=== PATIENT | male | born 1945 ===

== ENCOUNTER → 2023-08-09 | Outpatient (CLI) | payer MEDICARE | END | disposition home or self-care (01) | LOC: PLD 12:21 → LAB 12:21 → LAB SHORT 12:21 | DX: L57.0 Actinic keratosis (principal) | CPT/HCPCS: 88305 ==

== ENCOUNTER 2024-07-05 14:40 | Inpatient (IN) | payer OTHER ==
[~2024-07-05] VITALS: Ht 152.4 cm; Wt 84.9 kg
[2024-07-05] VITALS (22 sets, daily range): BP systolic 113–148; BP diastolic 64–119
[~2024-07-05 14:40] MED LIST: Atropine Sulfate 0.1 MG/ML 10ML SYR XX ONE
[2024-07-05] MEDS ORDERED: Diazepam 5 MG / ML 2ML SYR IV ONE (15:05)
[2024-07-05] MEDS ORDERED: Morphine Sulfate 4 MG/1 ML Injection IV ONE ×2 (15:05→15:15)
[2024-07-05] MEDS ORDERED: Morphine Sulfate 4 MG/1 ML Injection ONE (15:16)
[2024-07-05] MEDS ORDERED: Aspirin 81 MG Chew ONE (15:46)
[2024-07-05] MEDS ORDERED: Aspirin 81 MG Chew PO ONE (15:50)
[2024-07-05 15:57] LABS: BASOPHILS ABSOLUTE AUTO 0.01 K/mm3 (0.00-0.23); BASOPHILS PERCENT AUTO 0 % (0-2); EOSINOPHILS ABSOLUTE AUTO 0.02 K/mm3 (0.00-0.68); EOSINOPHILS PERCENT AUTO 0 % (0-6); Hemoglobin 13.6 g/dL (13.5-17.5); IMMATURE GRAN ABSOLUTE AUTO 0.23 K/mm3 (0.00-0.10); IMMATURE GRAN PERCENT AUTO 4 % (0-1); LYMPHOCYTES ABSOLUTE AUTO 0.57 K/mm3 (0.84-5.20); LYMPHOCYTES PERCENT AUTO 11 % (21-46); MONOCYTES ABSOLUTE AUTO 0.53 K/mm3 (0.16-1.47); MONOCYTES PERCENT AUTO 10 % (4-13); Mean Corpuscular HGB 29.2 pg (26.0-34.0); Mean Corpuscular HGB Conc 32.4 g/dL (31.5-36.5); Mean Corpuscular Volume 90 fL (80-100); NEUTROPHILS ABSOLUTE AUTO 3.95 K/mm3 (1.96-9.15); NEUTROPHILS PERCENT AUTO 74 % (41-73); Platelet Count 213 K/mm3 (150-400); RDW Coefficient Variation 15.2 % (11.7-14.2); RDW Standard Deviation 50.5 fL (35.1-46.3); Red Blood Cell Count 4.65 M/mm3 (4.30-5.90); White Blood Cell Count 5.31 K/mm3 (4.00-11.30)
[2024-07-05] MEDS ORDERED: Verapamil HCL 2.5 MG/ML 2ML Injection ONE (16:06)
[2024-07-05] MEDS ORDERED: Nitroglycerin 2 MG/20 ML BTL ONE (16:06)
[2024-07-05] MEDS ORDERED: Midazolam HCl 1MG / ML 2ML Vial ONE (16:07)
[2024-07-05] MEDS ORDERED: SERT25 PO (16:07)
[2024-07-05] MEDS ORDERED: AMLO10 PO ×2 (16:07→16:08)
[2024-07-05] MEDS ORDERED: FentaNYL Citrate 50 MCG/ML 2 ML Injection ONE (16:08)
[2024-07-05] MEDS ORDERED: Heparin Sodium 1000 Units/ML 10ML MDV ONE (16:08)
[2024-07-05] MEDS ORDERED: ATOR10 PO (16:08)
[2024-07-05] MEDS ORDERED: Atropine Sulfate 0.1 MG/ML 10ML SYR ONE (16:08)
[2024-07-05] MEDS ORDERED: JAKAFI10 MG PO (16:08)
[2024-07-05] MEDS ORDERED: Aspir 8181 MG PO (16:08)
[2024-07-05] MEDS ORDERED: NS 1,000 ML IV ONE (16:08)
[2024-07-05] MEDS ORDERED: VITAMIN D33000 UNIT PO (16:09)
[2024-07-05 16:11] LABS: Albumin, Blood 4.1 g/dL (3.4-5.0); Albumin/Globulin Ratio 1.5 (0.8-1.8); Bilirubin, Total 0.5 mg/dL (0.1-1.0); Bun/Creatinine Ratio 15.2 (12.0-20.0); Calcium, Blood 8.6 mg/dL (8.5-10.1); Creatinine, Blood 1.25 mg/dL (0.60-1.20); Globulin, Blood 2.7 g/dL (2.2-4.0); Total Protein, Blood 6.8 g/dL (6.4-8.2)
[2024-07-05] MEDS ORDERED: NS 250 ML IV ONE (16:13)
--- NOTE | 2024-07-05 18:08 | NUR ---
ADMIT PT ARRIVED TO ICU 10 VIA BED FROM [facility]. PT HAS TV PACER IN R IJ WITH SETTINGS OF RATE 60, OUTPUT 3, SENSING 2. PT'S HR WAS READING 55-58 AT THESE SETTINGS. SPOKE WITH DR. SERRA AND RECEIVED ORDER TO INCREASE OUTPUT TO 7 AND SENSING TO 8. HR INCREASED TO 60 WITH THESE SETTINGS. PT DENIED ANY DIZZINESS AT THE LOWER HR. PT HAS R TR BAND SITE. SITE IS C/D/I, SOFT, NO HEMATOMA. PT'S FINGERS ARE A LITTLE DUSKY BUT PT DENIES ANY NUMBNESS OR TINGLING. PT IS ALERT AND ORIENTED. DR. SERRA GAVE OK FOR PT TO EAT DINNER, BUT NPO AFTER MIDNIGHT.
[2024-07-05] MEDS ORDERED: Acetaminophen 325 MG TABLET PO PRN (18:50)
[2024-07-05] MEDS ORDERED: OxyCODONE HCL 5 MG TAB PO PRN (18:50)
[2024-07-05] MEDS ORDERED: NS 1,000 ML IV SCH (19:00)
[2024-07-05 19:45] LABS: C-REACTIVE PROTEIN, EXT RANGE <0.290 mg/dL (0.000-0.300); Magnesium, Blood 2.1 mg/dL (1.6-2.4)
--- NOTE | 2024-07-05 20:48 | NUR ---
ASSUMED CARE AT 1900 PATIENT IS ALERT AND ORIENTED X4. SP02 95% ON RA, DENIES SOB. HR PACED VIA TRANSVENOUS PACER AT 60, OUTPUT 7, SENSE 8, LENGTH 65 CM. DENIES CP/PRESSURE. TR BAND TO RIGHT RADIAL SITE DEFLATED, WILL REMOVE IN ONE HOUR IF NO HEMATOMA, SITE WNL AT THIS TIME. PATIENT ABLE TO USE URINAL. REPOSITION SELF IN BED. CALL LIGHT IN REACH. SEE SHIFT ASSESSMENT FOR MORE INFORMATION.
[2024-07-05] MEDS ORDERED: Atorvastatin 10 MG Tab PO SCH (21:00)
--- NOTE | 2024-07-05 22:14 | NUR ---
TR BAND OFF, TEGADERM AND ARM BOARD IN PLACE. SITE WNL.
[2024-07-06] VITALS (29 sets, daily range): BP systolic 107–155; BP diastolic 65–90
[2024-07-06 04:04] LABS: Albumin/Globulin Ratio 1.3 (0.8-1.8); Bilirubin, Total 0.6 mg/dL (0.1-1.0); Bun/Creatinine Ratio 12.8 (12.0-20.0); Calcium, Blood 9.2 mg/dL (8.5-10.1); Creatinine, Blood 1.09 mg/dL (0.60-1.20)
--- NOTE | 2024-07-06 06:15 | NUR ---
SHIFT SUMMARY PATIENT ALERT AND ORIENTED THROUGH THE NIGHT. SP02 96% ON RA. HR PACED AT 60 THROUGH THE ENTIRE NIGHT VIA TRANSVENOUS PACER. BP STABLE. USES URINAL. CALL LIGHT IN REACH
--- NOTE | 2024-07-06 07:38 | NUR ---
AM NOTE... ASSUMED CARE OF PT AT 0700, PT IS A&Ox4. TV PACER TO THE RIGHT IJ, SITE IS STABLE PT C/O OF MINIMAL PAIN TO THE SITE. RIGHT ANGIO SITE IS ALSO STABLE, ARM BOARD IN PLACE. TV PACER 60, PT'S RATE IS 60 AND 100% PACED, BP IS STABLE WITH MAPS>65. NO SWELLING OR EDEMA IS NOTED. PT DENIES CP. L/S CLEAR T/O PT IS ON RA WITH O2 SATS>95%. WILL CONTINUE TO MONITOR.
[2024-07-06] MEDS ORDERED: Aspirin 81 MG TabEC PO SCH (09:00)
[2024-07-06] MEDS ORDERED: AmLODIPine Besylate 5 MG Tab PO SCH (09:00)
[2024-07-06] MEDS ORDERED: Sertraline HCl 50 MG Tab PO SCH (09:00)
[2024-07-06] MEDS ORDERED: RUXOLITINIB 10 MG PO SCH (09:00)
[2024-07-06] MEDS ORDERED: Sennosides 8.6 MG Tab PO SCH (09:00)
[2024-07-06] MEDS ORDERED: NS 100 ML IV ONE (09:14)
[2024-07-06] MEDS ORDERED: CeFAZolin Sodium 1000 mg Vial ONE (09:14)
[2024-07-06] MEDS ORDERED: CeFAZolin Sodium 2,000 MG VIAL ONE (09:14)
[2024-07-06] MEDS ORDERED: Bupivacaine 0.5% HCl 5 MG/ML 30MLVIAL ONE (09:15)
[2024-07-06] MEDS ORDERED: Heparin Sodium 1000 Units/ML 10ML MDV ONE (09:15)
[2024-07-06] MEDS ORDERED: NS 1,000 ML IV ONE ×2 (09:15)
[2024-07-06] MEDS ORDERED: Artificial Tears Opth Oint 7 GM BOTHEYES PRN (09:35)
[2024-07-06] MEDS ORDERED: FentaNYL Citrate 50 MCG/ML 2 ML Injection ONE (10:07)
[2024-07-06] MEDS ORDERED: Midazolam HCl 1MG / ML 2ML Vial ONE ×2 (10:07→11:28)
[2024-07-06] MEDS ORDERED: Lidocaine 2%-Epineph 1:100000 20 ML MDV ONE (11:53)
--- NOTE | 2024-07-06 13:52 | NUR ---
CARE ASSUMPTION: PT ARRIVES F/HEART CENTER AT APPROX 1230, S/P PACEMAKER PLACEMENT. PT ALERT UPON ARRIVAL, ORIENTED x4, ORIENTED TO ROOM. PT DENIES CP OR SOB. O2 SATS >92% ON RA, LS CLEAR. PACED RHYTHM ON MONITOR, RATE 60. RECOVERY VS MONITORING IN PLACE. RIGHT IJ SITE COVERED W/ GAUZE AND TRANSPARENT DRESSING, BRUISING AROUND INSERTION SITE NOTED, OTHERWISE STABLE. R RADIAL SITE RECOVERED, BRUISING AND SWELLING AROUND INSERTION SITE W/TRANSPARENT DRESSING AND ARM BOARD IN PLACE. PT HAS BEEN SLEEPING SINCE ARRIVAL TO ROOM, CALL LIGHT IS IN REACH. WILL CONTINUE TO MONITOR AND TREAT ACCORDINGLY.
[2024-07-06] MEDS ORDERED: CeFAZolin Sodium 2,000 MG in NS 100 ML IV SCH (18:00)
--- NOTE | 2024-07-06 18:49 | NUR ---
SHIFT SUMMARY: NO ACUTE CHANGES SINCE LAST NOTE. PT AWAKE, ORIENTEDx4, ANSWERING QUESTIONS APPROPRIATELY. L CHEST SITE DRESSING WNL, ICE PACK TO AREA, PT TOLERATING WELL. PT RESTING QUIETLY IN ROOM WITH CALL LIGHT IN REACH.
--- NOTE | 2024-07-06 20:24 | NUR ---
ASSUMPTION OF CARE AFTER RECEIVING REPORT FROM SANDEEP DE LA FUENTE, THIS RN ASSUMED CARE AT APPROX 1915. PATIENT ALERT AND ORIENTED X4. COMMUNICATES NEEDS EFFECTIVELY. S/P DUAL CHAMBER PACEMAKER PLACEMENT TODAY W/ L CHEST SITE. GAUZE AND PRESSURE TAPE DRESSING IN PLACE - C/D/I. MINIMAL BRUISING NOTED AROUND DRESSING AND L AXILLARY AREA. PAIN TOLERABLE WITH ICE PACK. LUE IN SLING. IS A SBA WITH MOBILITY FOR LINE, DEVICE MANAGEMENT. TELEMETRY SHOWING PACED 60s. BP STABLE, SBP 150s. DENIES CHEST PAIN, PRESSURE. R RADIAL SITE FROM ANGIO. SMALL HEMATOMA NOTED AT INSERTION SITE, OTHERWISE DRESSING IS C/D/I. NONPAINFUL. ARMBOARD IN PLACE. ON ROOM AIR, SATs >90%. RR EVEN, UNLABORED. CALL LIGHT IN REACH.
[2024-07-07] MEDS ORDERED: Ondansetron HCl 2 MG / ML 2ML Vial IV PRN (01:40)
[2024-07-07 03:01] VITALS: BP 154/86
[2024-07-07 04:27] LABS: Hematocrit 43.4 % (37.0-53.0); Hemoglobin 14.4 g/dL (13.5-17.5); Mean Corpuscular HGB 29.6 pg (26.0-34.0); Mean Corpuscular HGB Conc 33.2 g/dL (31.5-36.5); Mean Corpuscular Volume 89 fL (80-100); Mean Platelet Volume 10.6 fL (9.1-12.4); Platelet Count 179 K/mm3 (150-400); RDW Coefficient Variation 15.6 % (11.7-14.2); RDW Standard Deviation 50.4 fL (35.1-46.3); Red Blood Cell Count 4.86 M/mm3 (4.30-5.90); White Blood Cell Count 5.93 K/mm3 (4.00-11.30)
[2024-07-07 04:49] LABS: Bun/Creatinine Ratio 11.1 (12.0-20.0); Calcium, Blood 9.3 mg/dL (8.5-10.1); Creatinine, Blood 1.08 mg/dL (0.60-1.20); Magnesium, Blood 1.8 mg/dL (1.6-2.4); Potassium, Blood 4.2 mmol/L (3.5-5.5)
--- NOTE | 2024-07-07 05:06 | NUR ---
SHIFT SUMMARY NO ACUTE EVENTS SINCE ASSUMPTION OF CARE NOTE. PATIENT REMAINS ALERT AND ORIENTED X4. AFEBRILE. TELEMETRY SHOWING PACED 60s-70s. BP STABLE, SBP 150s. DENIES CHEST PAIN, PRESSURE. L UPPER CHEST WALL INCISION REMAINS C/D/I. GAUZE AND PRESSURE TAPE DRESSING IN PLACE. NO GROWTH IN BRUISING AROUND DRESSING AND L AXILLARY SINCE PREVIOUS ASSESSMENT. NO CHANGES TO R RADIAL SITE FROM PREVIOUS ASSESSMENT. ARMBOARD IN PLACE. REMAINS ON ROOM AIR, SATs >90%. RR EVEN, UNLABORED. DID REPORT X1 EPISODE OF NAUSEA, EPIGASTRIC "BURNING" DISCOMFORT WHILE THIS RN ON BREAK. BREAK RNDENNIS CONTACTED MD RUIZ - RECEIVED ORDER FOR IV ZOFRAN. PATIENTs NAUSEA MANAGED WITH SALTINE CRACKERS AT THIS TIME. USES URINAL INDEPENDENTLY. VOIDING. NO BM THIS SHIFT. CALL LIGHT IN REACH. WILL CONTINUE TO MONITOR AND REPORT TO ONCOMING RN.
[2024-07-07 07:31] VITALS: BP 142/96
[2024-07-07] MEDS ORDERED: AmLODIPine Besylate 5 MG Tab PO SCH (09:00)
[2024-07-07] MEDS ORDERED: Metoprolol Succinate 50 MG TABCR PO SCH (10:00)
[2024-07-07] MEDS ORDERED: METO50ER PO (11:39)
[2024-07-07 12:08] VITALS: BP 154/92
--- NOTE | 2024-07-07 12:39 | NUR ---
DISCHARGE NOTE: PT GIVEN EDUCATION ON ANGIO SITE AND PACER SITE AFTER CARE. PT EDUCATED ON NEW MEDICATIONS AND DOSES SENT TO PHARMACY. PT STATED UNDERSTANDING, ALL QUESTIONS ANSWERED AT TIME OF DISCHARGE. IVS REMOVED AND TELE RETURNED. PT ESCORTED TO FRONT DOOR BY THIS RN. NO NEEDS AT TIME OF DISCHARGE.
[2024-07-07 18:34] LABS: ANGIOTENSIN CONVERTING ENZYME 25 U/L (16-85)
[2024-07-07 18:36] LABS: COMPLEMENT COMPONENT 3 107 mg/dL (90-180); COMPLEMENT COMPONENT 4 14 mg/dL (10-40)
[2024-07-08 04:42] LABS: ANTINUCLEAR AB (ANA),HEP-2,IGG <1:80 (<1:80)
[2024-07-08 11:51] LABS: LYME VLSE1/PEPC10 ABS, ELISA 0.35 IV (<=0.90)
[2024-07-08 16:36] LABS: DOUBLE-STRANDED DNA IGG ELISA 3 IU (0-24)
== END 2024-07-07 12:41 | disposition home or self-care (01) | DRG 243 ==
LOC: ER 14:40 → PCU 15:56 → ICUE 16:35 → PCU 16:35 → ICUE 17:09 → PCU 07-06 12:35
PROVIDERS: Nurse Practitioner Acute Care; Student in an Organized Health Care Education/Training Program; ADMIT Internal Medicine
PROC: 4A023N7 Measurement of Cardiac Sampling and Pressure, Left Heart, Percutaneous Approach (ICD-10-PCS; 2024-07-05)
PROC: 02HK3JZ Insertion of Pacemaker Lead into Right Ventricle, Percutaneous Approach (ICD-10-PCS; 2024-07-05)
PROC: B2111ZZ Fluoroscopy of Multiple Coronary Arteries using Low Osmolar Contrast (ICD-10-PCS; 2024-07-05)
PROC: 5A1223Z Performance of Cardiac Pacing, Continuous (ICD-10-PCS; 2024-07-05)
PROC: 0JH606Z Insertion of Pacemaker, Dual Chamber into Chest Subcutaneous Tissue and Fascia, Open Approach (ICD-10-PCS; principal; 2024-07-06)
PROC: 02H63JZ Insertion of Pacemaker Lead into Right Atrium, Percutaneous Approach (ICD-10-PCS; 2024-07-06)
PROC: 02HK3JZ Insertion of Pacemaker Lead into Right Ventricle, Percutaneous Approach (ICD-10-PCS; 2024-07-06)
DX: I44.2 Atrioventricular block, complete (principal); D75.81 Myelofibrosis; E78.5 Hyperlipidemia, unspecified; I12.9 Hypertensive chronic kidney disease with stage 1 through stage 4 chronic kidney disease, or unspecified chronic kidney disease; N18.30 Chronic kidney disease, stage 3 unspecified; R74.01 Elevation of levels of liver transaminase levels; Z88.1 Allergy status to other antibiotic agents; Z79.82 Long term (current) use of aspirin; Z79.899 Other long term (current) drug therapy
CPT/HCPCS: 33208; 33210; 36415; 71045; 71046; 76705; 76937; 80048; 80053; 82164; 83735; 83880; 84443; 84484; 85025; 85027; 85651; 86039; 86140; 86160; 86225; 86430; 86618; 93005; 93010; 93306; 93458; 99152; 99153; 99285-25; A9270; C1769; C1785; C1887; C1894; C1898; J0461; J0690; J1644; J2250; J2270; J2405; J3010; J3360; J7030; J7040; J7050; Q9967